=== PATIENT | female | born 1995 | race Caucasian/White ===

== ENCOUNTER 2020-01-28 13:00 | Emergency (ER) | payer MEDICAID ==
[~2020-01-28] VITALS: Ht 172.7 cm; Wt 77.0 kg
[~2020-01-28 13:00] MED LIST: ARIP5TAB14 PO; CALC-793 PO; ESCI5TAB PO; NAPR500T6 PO
[2020-01-28 13:14] VITALS: BP 115/74
--- NOTE | 2020-01-28 13:29 | NUR ---
Slick MANZANO EVALUATING PT
[2020-01-28] MEDS ORDERED: NEOM10DR45 RIGHT EAR (13:39)
== END 2020-01-28 13:52 | disposition home or self-care (01) ==
LOC: ER 13:01 → EDSEX 13:01 → ER 13:52
DX: H60.501 Unspecified acute noninfective otitis externa, right ear (principal); R05 Cough; J02.9 Acute pharyngitis, unspecified; Z79.2 Long term (current) use of antibiotics; Z79.899 Other long term (current) drug therapy
CPT/HCPCS: 99283

== ENCOUNTER 2022-04-25 09:34 | Emergency (ER) | payer MEDICAID ==
[~2022-04-25] VITALS: Ht 172.7 cm; Wt 78.6 kg
[2022-04-25 09:49] VITALS: BP 116/82
[2022-04-25] MEDS ORDERED: ondansetron 4mg rapidly disintigrating tab PO STA (11:33)
[2022-04-25] MEDS ORDERED: LIDOcaine Viscous 15ml cup MM ONE (11:35)
[2022-04-25] MEDS ORDERED: GUAI400T92 PO (11:36)
[2022-04-25] MEDS ORDERED: LIDO20SO16 PO (11:36)
[2022-04-25] MEDS ORDERED: ONDA4TAB12 PO (11:36)
== END 2022-04-25 12:16 | disposition home or self-care (01) ==
LOC: ER 09:37
DX: J06.9 Acute upper respiratory infection, unspecified (principal); Z88.8 Allergy status to other drugs, medicaments and biological substances; Z79.899 Other long term (current) drug therapy
CPT/HCPCS: 87081; 87880; 99283

== ENCOUNTER 2024-04-18 07:27 | Emergency (ER) | payer MEDICAID ==
[~2024-04-18] VITALS: Ht 172.7 cm; Wt 85.5 kg
[~2024-04-18 07:27] MED LIST changes: +ARIP5TAB12 PO; -ARIP5TAB14 PO; +GUAI400T92 PO; +LIDO20SO16 PO; +NAPR-1480 PO; -NAPR500T6 PO; +ONDA-243 PO
[2024-04-18 07:31] VITALS: BP 111/80; PULSE 73; TEMP 97.7; O2SAT 100
[2024-04-18] MEDS ORDERED: NAPR-56 PO (09:56)
[2024-04-18] MEDS ORDERED: METH-798 PO (09:56)
[2024-04-18 10:05] VITALS: RESP 16
[2024-04-18] MEDS: diazepam 5mg tablet PO ONE (10:05)
[2024-04-18] MEDS: traMADol 50MG tablet PO ONE (10:05)
== END 2024-04-18 10:13 | disposition home or self-care (01) ==
LOC: ER 07:28
DX: S29.012A Strain of muscle and tendon of back wall of thorax, initial encounter (principal); Z88.8 Allergy status to other drugs, medicaments and biological substances; X58.XXXA Exposure to other specified factors, initial encounter; Y93.89 Activity, other specified; Y92.89 Other specified places as the place of occurrence of the external cause; Y99.8 Other external cause status
CPT/HCPCS: 99284